=== PATIENT | male | born 1960 | race Caucasian/White ===

== ENCOUNTER 2016-11-13 21:51 | Emergency (ER) | payer OTHER ==
[~2016-11-13] VITALS: Ht 172.7 cm; Wt 79.4 kg
--- NOTE | 2016-11-13 22:03 | NUR ---
STATUS PT ALERT, TALKATIVE, RESP EVEN AND UNLABORED.
--- NOTE | 2016-11-13 22:21 | NUR ---
PT TO XRAY VIA WC
--- NOTE | 2016-11-13 22:30 | NUR ---
RETURNED TO FROM XRAY
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
--- NOTE | 2016-11-13 23:33 | NUR ---
DISCHARGE PT VERBALIZED HE WAS READY TO GO HOME. DISCHARGE INSTRUCTIONS DISCUSSED. PT VERBALIZED UNDERSTANDING. ENCOURAGED TO RETURN FOR ANY CONCERNS.
== END 2016-11-13 23:33 | disposition home or self-care (01) ==
LOC: ER 21:51
DX: S20.219A Contusion of unspecified front wall of thorax, initial encounter (principal); S89.92XA Unspecified injury of left lower leg, initial encounter; Z98.890 Other specified postprocedural states; V03.90XA Pedestrian on foot injured in collision with car, pick-up truck or van, unspecified whether traffic or nontraffic accident, initial encounter; Y93.89 Activity, other specified; Y92.89 Other specified places as the place of occurrence of the external cause; Y99.8 Other external cause status
CPT/HCPCS: 99285; 71101-RT; 73562-LT